=== PATIENT | male | born 1965 | race Caucasian/White ===

== ENCOUNTER 2016-10-04 08:15 | Emergency (ER) | payer OTHER ==
[~2016-10-04] VITALS: Ht 172.7 cm; Wt 85.9 kg
[~2016-10-04 08:15] MED LIST: GUAI100S6 PO; Z.0.NO CURRENT MEDS; ZITH250T PO
[2016-10-04 08:21] VITALS: BP 126/74; PULSE 79; RESP 16; TEMP 98.3; O2SAT 99
[2016-10-04] MEDS ORDERED: BUPR75TA PO (08:24)
[2016-10-04] MEDS ORDERED: NEXI40CA PO (08:24)
[2016-10-04] MEDS ORDERED: LORA-361 PO (08:47)
--- NOTE | 2016-10-04 08:53 | PD ---
HPI Chief Complaint: Musculoskeletal Complaint Time Seen by Provider: 08:44 Travel History International Travel<30 days: No Contact w/Intl Traveler<30days: No Traveled to known affect area: No History of Present Illness HPI Patient complains of an injury to his right fourth toe. He stubbed it this morning against a pile of wood. He has pain with weightbearing. No other injury. Duration 2 hours PFSH Past Medical History Anxiety: Yes Diminished Hearing: No GERD: Yes Immunizations Current: Yes Tetanus Vaccination: > 5 Years Influenza Vaccination: No ?: Not Past Surgical History Abdominal Surgery: Yes (hernia repair to left groin x 2) Tonsillectomy: Yes Social History Alcohol Use: Yes (occas. beers) Tobacco Use: No Substance Use: No Allergies-Medications (Allergen,Severity, Reaction): Coded Allergies: Ceclor (Verified Allergy, Severe, SCRATCHY THROAT/HIVES, 10/04/16) Penicillin (Verified Allergy, Severe, SCRATCHY THROAT/HIVES, 10/04/16) Iohexol (OMNIPAQUE) (Unverified Allergy, Unknown, ITCHING/NEEDS PREMEDS, ) Reported Meds & Prescriptions Reported Meds & Active Scripts Active Reported Claritin (Loratadine) 10 Mg Tab 10 Mg PO DAILY Nexium (Esomeprazole DR) 40 Mg Capdr 40 Mg PO DAILY Bupropion HCl 75 Mg Tab 75 Mg PO BID Review of Systems General / Constitutional: No: Fever HENT: No: Headaches Cardiovascular: No: Chest Pain or Discomfort Physical Exam Narrative Psych: Normal mood and affect. Normal insight and judgment. SKIN: Inspection shows no rash or ulcers. Palpation shows no induration or nodules. Right foot: Has swollen right fourth toe with tenderness. No other areas tender. No open wound. Data Data Last Documented VS Vital Signs Date Time Temp Pulse Resp B/P Pulse Ox O2 Delivery O2 Flow Rate FiO2 10/04/16 08:41 16 10/04/16 08:21 98.3 79 126/74 99 Orders Toe (Min 2vws) (10/04/16 ) Splint Or Brace Apply/Monitor (10/04/16 09:49) MDM Medical Decision Making Medical Screen Exam Complete: Yes Emergency Medical Condition: Yes Medical Record Reviewed: Yes Differential Diagnosis Fracture, contusion, dislocation Narrative Course I have reviewed the patient's electronic medical record. I reviewed his toe x-rays which show fracturing of the right fourth toe but nondisplaced Use given carmela taping of the third and fourth toes on the right foot. Supportive care discussed such as limit weightbearing and ice and elevation Follow-up with podiatry as needed Diagnosis Primary Impression: Toe fracture, right Qualified Code: S92.514A - Closed nondisplaced fracture of proximal phalanx of lesser toe of right foot, initial encounter Additional Instructions: Use carmela taping Ice and elevate today Follow-up with podiatry as needed Med/Other Pt SpecificInfo: Other Disposition: 01 DISCHARGE HOME Condition: Stable Scott Hernandes MD Oct 04, 2016 08:52
--- NOTE | 2016-10-04 09:17 | RADHPO ---
EXAM DATE/TIME: 10/04/2016 08:56 [facility] COMPARISON: No previous studies available for comparison. INDICATIONS : Right 4th digit pain, stubbed toe this morning on fence post. MEDICAL HISTORY : None. SURGICAL HISTORY : None. ENCOUNTER: Initial ACUITY: 1 day PAIN SCORE: 5/10 LOCATION: Right 4th digit FINDINGS: Examination of the fourth digit of the right foot demonstrates fracture at the distal aspect of the f ourth proximal phalanx with dorsal angulation of the distal fragment. CONCLUSION: Fracturing of the distal aspect of the fourth proximal phalanx. Girma Ramírez MD on October 04, 2016 at 9:13 Board Certified Radiologist. This report was verified electronically.
== END 2016-10-04 10:38 | disposition home or self-care (01) ==
LOC: PHED 08:15
DX: S92.514A Nondisplaced fracture of proximal phalanx of right lesser toe(s), initial encounter for closed fracture (principal); W22.8XXA Striking against or struck by other objects, initial encounter; Y93.01 Activity, walking, marching and hiking; Y92.89 Other specified places as the place of occurrence of the external cause; Y99.9 Unspecified external cause status
CPT/HCPCS: 73660; 99283